=== PATIENT | female | born 1990 | race Caucasian/White ===

== ENCOUNTER 2022-07-16 16:35 | Emergency (ER) | payer OTHER ==
[2022-07-16 17:09] VITALS: BP 126/78; PULSE 93; RESP 20; TEMP 98.1; BMI 34.4
[2022-07-16] MEDS ORDERED: ACETAMINOPHEN 325 MG TABLET (FP) PO ONE (19:17)
[2022-07-16] MEDS ORDERED: ACETAMINOPHEN 325 MG TABLET (FP) ONE (19:21)
== END 2022-07-16 20:36 | disposition home or self-care (01) ==
LOC: JER 16:35 → JERFT 16:35
DX: M79.605 Pain in left leg (principal)
CPT/HCPCS: 73590-TC-LT-FY; 99283-25